=== PATIENT | female | born 1990 | race African-American/Black ===

== ENCOUNTER 2020-12-17 21:03 | Emergency (ER) | payer OTHER, BC, SELFPAY ==
--- NOTE | ~2020-12-17 | XR_ITS ---
EXAMINATION: XR chest 2V DATE: 12/17/2020 23:03 INDICATION: Shortness of breath. Shooting pains post back injury 3 weeks prior. TECHNIQUE: PA and lateral views of the chest were obtained. COMPARISON: None FINDINGS: The lungs are clear with no focal airspace opacities, pulmonary edema, pleural effusion or pneumothor ax. The cardiomediastinal silhouette is normal. 17 degrees thoracic dextroscoliosis with mild spondyl osis. IMPRESSION: 1. No acute cardiopulmonary disease. Reviewed, dictated and finalized at location A.
--- NOTE | 2020-12-17 21:10 | PC.NURSE ---
received report from ems. ems states that pt chief complaint is neck and back pain that is radiating to her chest. ems states they did an EKG and states it was normal. ems states pt refused IV access. pt denies any past medical history and pt has no known allergies.
[2020-12-17 21:13] VITALS: BP 133/83; PULSE 93; RESP 17; TEMP 36.6; O2SAT 100
--- NOTE | 2020-12-17 22:42 | ED.GENADULT ---
HPI - General Adult General Chief complaint: Neck Pain/Injury Stated complaint: neck back pain Time Seen by Provider: 12/17/20 22:26 Source: patient Mode of arrival: EMS Limitations: no limitations History of Present Illness HPI narrative: Patient is a 31-year-old female complaining of chest pain, left chest wall, 7 out of 10, dull, worse with palpation and movement started today. Patient states that her left chest wall pain started while she was is wiping something. Patient also states that her pain could be attributed to her back pain that is been ongoing for the past month. Patient states that she was seen twice at [facility] for back pain that was work-related, on his second visit was referred to [facility] speech language specialist. Patient states that she had an appointment today and saw an orthopedic doctor and was given a referral to do physical therapy. Related Data Allergies Allergy/AdvReac Type Severity Reaction Status Date / Time No Known Allergies Allergy Verified 12/17/20 22:28 Review of Systems Review of Systems: All systems reviewed & are unremarkable except as noted in HPI and below Constitutional: Constitutional: Denies body ache(s), Denies chills, Denies excessive sweating, Denies fatigue, Denies fever(s), Denies headache(s), Denies lethargy, Denies malaise, Denies weakness and Denies weight loss Eyes: Eyes: Denies blurry vision, Denies change in vision and Denies loss of vision ENT: Denies dizziness, Denies ear discharge, Denies headache(s), Denies lip swelling, Denies epistaxis, Denies nasal congestion, Denies neck pain, Denies throat swelling and Denies tongue swelling Cardiovascular: Cardiovascular: Denies diaphoresis, Denies rapid heart rate, Denies edema, Denies irregular heart rhythm, Denies lightheadedness, Denies palpitations, Denies dyspnea and Denies dyspnea on exertion Respiratory: Respiratory: Denies chest congestion, Denies cough, Denies hemoptysis, Denies dyspnea and Denies dyspnea on exertion Gastrointestinal: Gastrointestinal: Denies abdominal pain, Denies melena, Denies hematochezia, Denies diarrhea, Denies nausea, Denies vomiting and Denies hematemesis Musculoskeletal: Musculoskeletal: Denies abnormal gait, Denies deformity, Denies joint swelling, Denies limited range of motion and Denies numbness Neurologic: Denies Abnormal speech present, Denies abnormal gait, Denies confusion, Denies dizziness, Denies headache(s), Denies focal weakness, Denies loss of vision, Denies numbness, Denies Other visual disturbances, Denies Sensory deficit (Neuro) and Denies weakness Psychiatric: Psychiatric: Denies confusion, Denies depression, Denies auditory hallucinations, Denies homicidal ideation and Denies suicidal ideation Endocrine: Endocrine: Denies cold intolerance, Denies excessive sweating, Denies fatigue, Denies heat intolerance and Denies palpitations Hematologic/Lymphatic: Hematologic/Lymphatic: Denies easy bleeding and Denies easy bruising Allergic/Immunologic: Allergic/Immunologic: Denies lip swelling, Denies throat swelling and Denies tongue swelling PMFSH Comments Past medical history: None Family history: Negative for [place] or coronary artery disease Social history: Positive for smoker, no EtOH or drug use Exam Const: General: cooperative, healthy appearing, comfortable, no acute distress, well developed, alert and awake; No confusion Orientation/consciousness: oriented to person, oriented to place, oriented to time, patient oriented x3 and No confusion Limitations: no limitations HENMT: Head: normal to inspection, normocephalic and atraumatic Ears: hearing grossly normal bilaterally, TM normal on the right and TM normal on the left General nose exam: Normal external nose present, Normal nares present and No nasal discharge present Face and sinus: normal facial exam Mouth: Yes Normal oral and palatal mucosa present, Yes lip normal, Yes tongue normal and Yes oropharynx normal Throat: posterior orophary
[2020-12-17 23:00] VITALS: BP 133/74; PULSE 75; RESP 14; O2SAT 100
[2020-12-17] MEDS: KETOROLAC 30 MG/ML VIAL (*BKC) IM (23:05)
--- NOTE | 2020-12-18 | ECG_ITS ---
Measurements Intervals [place] Rate: 75 P: 39 IA: 171 QRS: 73 QRSD: 78 T: 62 QT: 450 QTc: 504 Interpretive Statements SINUS RHYTHM BORDERLINE T WAVE ABNORMALITY- ANTERIOR LEADS PROLONGED QT INTERVAL BASELINE ARTIFACT- I, II, V1-V2 ABNORMAL ECG Electronically Signed On 12-18-2020 6:47:44 CDT by Issa Baum D.O.
--- NOTE | 2020-12-18 00:58 | PC.NURSE ---
Pt. requesting a ride home. RN notified pt. that this hospital does not provide services for that. pt. states I clearly just need to go back to [place] to get proper health care. This is negligence. I specifically told them at the desk or I would have just left with the ambulance. RN offered to assist pt. out into the waiting room pt. states I got it beautiful [facility]
--- NOTE | 2020-12-18 01:10 | PC.NURSE ---
pt. requested from RN paperwork stating why i got stuck with a needle. for insurance purposes. pt. yelling at RN stating that it is inappropriate for the discharge paperwork not to list what a patient received in the ER if someone had an allergic reaction. PT. states I know I am a nobody which is how I like it, but never do that again. Print me something stating that you stuck me with a needle and what it was. I also want you to write it down on my discharge paperwork and sign it so I know it was you. RN instructed pt. that the paper provided to her had the medication listed for her and that she was to leave since she is discharged. pt. continued to yell at RN and ED security contacted to escort pt. out.
== END 2020-12-18 00:58 | disposition home or self-care (01) ==
PROVIDERS: Emergency Provider Emergency Medicine
DX: R07.89 Other chest pain (principal)
CPT/HCPCS: 71046; 93005; 96372; 99283; J1885